=== PATIENT | female | born 1960 | race Caucasian/White ===

== ENCOUNTER 2017-01-04 12:03 | Emergency (ER) | payer BC ==
[2017-01-04 12:11] VITALS: RESP 18; TEMP 97.5; O2SAT 98
--- NOTE | 2017-01-04 13:14 | DX ---
Right Wrist, Three Views January 04, 2017 at 12:27 p.m. Clinical History: 56-year-old female who fell today while hiking, and is unable to flatten her wrist. Comparison Study: None. Findings: There is a complex comminuted and impacted fracture of the distal radial metaphysis with vo lar apex angulation. One of the fracture lines posteriorly approaches the dorsal articular surface. T here is displacement of the pronator fat pad. The ulnar styloid is still intact, and there is no conv incing navicular fracture. The bones appear mildly demineralized and when clinically feasible, a DEXA scan is suggested. I discussed these findings with Sheldon Castillo, Nurse Practitioner at 12:40 p.m. on January 04, 2017. Impression: Comminuted impacted Colles' fracture of the distal radius with some questionable underlyi ng generalized bone demineralization.
--- NOTE | 2017-01-04 13:25 | EDPHY ---
H & P Stated Complaint: ?r wrist dislocation postfall Source: Patient Exam Limitations: No limitations - Personal History Current Tetanus/Diphtheria Vaccine: Yes - Medical/Surgical History Hx Asthma: No Hx Chronic Respiratory Disease: No Hx Diabetes: No Hx Cardiac Disease: No Hx Renal Disease: No Hx Cirrhosis: No Hx Alcoholism: No Hx HIV/AIDS: No Other PMH: denies - Social History Smoking Status: Never smoked Time Seen by Provider: 01/04/17 12:11 HPI/ROS: CHIEF COMPLAINT: right wrist pain HISTORY OF PRESENT ILLNESS: 56-year-old female presents emergency department with right wrist deformity after a fall on outstretched right hand while hiking and slipped on ice today. Patient denies head strike, no neck pain, remembers the entire accident. She is [id number], reports numbness and tingling in her fingers. Patient denies elbow or shoulder pain. No previous injury to this wrist. REVIEW OF SYSTEMS: A comprehensive 10 point review of systems is otherwise negative aside from elements mentioned in the history of present illness. (Deneen Castillo) - Physical Exam Exam: Physical Exam Gen: Alert and Oriented, tearful HEENT: PERRL, moist mucous membranes NECK: no C-spine tenderness CV: regular rate and regular rhythm PULM: CTAB, no wheezes NEURO: Neurologically grossly intact EXTREMITIES: Right wrist with obvious deformity, 2+ radial pulses, sensation intact to light touch, cap refill less than 2 seconds, right elbow with no tenderness to palpation, full flexion and extension. SKIN: no rash or break in skin on exposed skin PSYCH: answers questions appropriately. (Deneen Castillo) Constitutional: Initial Vital Signs Temperature (C) 36.4 C 01/04/17 12:07 Heart Rate 66 01/04/17 12:07 Respiratory Rate 18 01/04/17 12:07 Blood Pressure 104/70 01/04/17 12:07 O2 Sat (%) 98 01/04/17 12:07 O2 Delivery Mode Room Air Allergies/Adverse Reactions: No Known Allergies Allergy (Unverified 01/04/17 12:06) Home Medications: Medication Instructions Recorded CeleBREX 01/04/17 Hydrocodone/APAP 5/325 [Alexis 1 tab PO Q4H PRN #20 tab 01/04/17 5/325] Medical Decision Making - Diagnostics Imaging: Right wrist x-ray independently reviewed by me- Impression: Comminuted impacted Colles' fracture of the distal radius with some questionable underlying generalized bone demineralization. Dictated By: Arnulfo Lockwodo MD Post reduction right wrist x-ray independently reviewed by me- Impression: Status post closed reduction and interim casting for a complex comminuted distal radial fracture with improvement in alignment, compared to 12:27 p.m. Dictated By: Arnulfo Lockwood MD (Denene Castillo) Procedures: Procedure: Fracture reduction. Indication: Displaced fracture right distal radius. Risks, benefits, alternatives discussed with the patient. Consent was obtained. The right distal radius was reduced using after he giving a hematoma block with 10 mL half 1% lidocaine without epinephrine and half 0.5% bupivacaine without epinephrine, good blood return prior to injection, good anesthesia obtained, patient tolerated well. Right hand was then placed in finger traps and was hanging with the traction of patient's own weight for approximately 5 minutes. Manual manipulation and traction performed for reduction. The patient has a normal neurovascular exam distal to the injury post reduction. Patient tolerated the procedure well and is significantly more comfortable. Post reduction x-ray demonstrates reduction of the fracture to the anatomic position. The procedure was performed by myself. A sugar-tong Ortho Glass splint was applied. After application of the splint, I returned and re-examined the patient. The splint was adequately immobilizing the joint. The patients circulation and sensation were intact distal to the splint. (Deneen Castillo) ED Course/Re-evaluation: 56 year old female presents with a comminuted displaced distal radius fracture. Hematoma block performed, right wrist was reduced and splinted, post reduction x-ray shows better alignment fracture, patient is sent home in a splint, she is sent with a prescription for Alexis. Patient is instructed to ice and elevate, she is given strict return precautions for any neurovascular compromise. Patient will follow up with an orthopedist within the next few days. She is given orthopedist on-call's contact information. (Deneen Castillo) Other Provider: Independent physician evaluation I evaluated and participated in the management of the patient. I also evaluated the patient independently. My co-signature indicates that I have reviewed this chart and I agree with the findings and plan of care as documented. My personal H&P findings include: The patient presents to the emergency department with pain and deformity to her right wrist after she fell earlier today. Patient denies additional co injury. The patient denies numbness or weakness. The patient has moderate pain and swelling involving her right wrist. PHYSICAL EXAM: General Appearance: Alert, no distress Head: Atraumatic Eyes: Pupils equal, round, reactive ENT, Mouth: No hemotympanum, no oral trauma Neck: Nontender, trachea midline Respiratory: No chest wall tender, subcutaneous air, lungs clear bilaterally Cardiovascular: Regular rate and rhythm Abdomen: Abdomen is soft and nontender, pelvis stable Skin: No lacerations, No abrasion Back: No midline T/L/S pain Extremities: Tenderness and deformity noted to the right distal radius Neurological: A&Ox3, normal motor function, normal sensory exam ER course: Under my supervision the patient underwent a close reduction of her distal radius fracture. Post reduction x-ray does demonstrate improvement in the angular deformity and shortening of the fracture. The patient continues to have some radial translation of the distal radius fracture relative to the shaft of the radius. The patient is noted to have a comminuted fracture pattern which will likely require further intervention. The patient will be placed in a sugar-tong splint. Procedure: Splint placement. A sugar-tong ortho glass splint was applied to the right upper extremity by [ the tech]. After application of the splint I returned and re-examined the patient. The splint was adequately immobilizing the joint and distal to the splint the patient's circulation and sensation was intact. The patient will be discharged home with a prescription for pain medications. She is advised to follow up with Orthopedic surgery for further evaluation as she may require ORIF for optimal reduction. (Ronak Byrd) - Data Points Medications Given: Discontinued Medications Acetaminophen/Hydrocodone Bitart (Alexis 5/325) 1 tab PO EDNOW ONE Stop: 01/04/17 13:51 Last Admin: 01/04/17 14:06 Dose: 1 tab Departure - Departure Disposition: Home, Routine, Self-Care Clinical Impression: Fracture of right distal radius Qualifiers: Encounter type: initial encounter Fracture type: closed Fracture morphology: other intra-articular Qualifier Code: (S52.571A) Other intraarticular fracture of lower end of right radius, initial encounter for closed fracture Condition: Good Instructions: Wrist Fracture in Adults (ED), Splint Care (ED) Additional Instructions: Rest, ice, elevate, take 600 mg of ibuprofen every 8 hours with food, take Alexis for severe pain. Keep splint in place, clean and dry until your follow- up appointment. Follow up with an orthopedist in the next 5 days. You have been given the name of the orthopedist on-call. Return to the emergency department for pain that is not controlled, discoloration of your hand numbness to your hand any other questions or concerns. Referrals: Bhargav Jamil MD [Medical Doctor] - As per Instructions (Orthopedist inspector precision) Prescriptions: Hydrocodone/APAP 5/325 [Alexis 5/325] 1 tab PO Q4H PRN #20 tab PRN Reason: Pain, Moderate
[2017-01-04] MEDS ORDERED: HYDROCODONE/APAP 5/325 TAB PO ONE (13:50)
[2017-01-04 14:14] VITALS: BP 128/71; PULSE 70
--- NOTE | 2017-01-04 16:04 | DX ---
Right Wrist, Two Views January 04, 2017 at 1:55 p.m. Clinical History: 56-year-old female who sustained a distal radial fracture, now presenting after sheila sed reduction. Comparison Study: Right wrist from earlier this afternoon at 12:27 p.m. Findings: There has been improvement in the degree of alignment involving the impacted distal radial Colles' fracture. There are persistent palmar and dorsal overlapping fragments. There is negative uln ar variance. The intercarpal alignments are maintained. Plaster casting does obscure fine bone detail . Impression: Status post closed reduction and interim casting for a complex comminuted distal radial f racture with improvement in alignment, compared to 12:27 p.m.
== END 2017-01-04 14:13 | disposition home or self-care (01) ==
PROC: 0PSHXZZ Reposition Right Radius, External Approach (ICD-10-PCS; principal; 2017-01-04)
DX: S52.571A Other intraarticular fracture of lower end of right radius, initial encounter for closed fracture (principal); W00.0XXA Fall on same level due to ice and snow, initial encounter; Y92.89 Other specified places as the place of occurrence of the external cause; Y93.01 Activity, walking, marching and hiking

== ENCOUNTER 2017-08-06 09:08 | Emergency (ER) | payer BC ==
[2017-08-06 09:15] VITALS: RESP 18
--- NOTE | 2017-08-06 09:35 | EDPHY ---
H & P Stated Complaint: R facial swelling since dental procedure yesterday - Personal History Current Tetanus Diphtheria and Acellular Pertussis (TDAP): Yes - Medical/Surgical History Hx Asthma: No Hx Chronic Respiratory Disease: No Hx Diabetes: No Hx Cardiac Disease: No Hx Renal Disease: No Hx Cirrhosis: No Hx Alcoholism: No Hx HIV/AIDS: No Other PMH: arthritis. HTN - Social History Smoking Status: Never smoked Time Seen by Provider: 08/06/17 09:20 HPI/ROS: CHIEF COMPLAINT: Facial swelling and crepitus HISTORY OF PRESENT ILLNESS: 57-year-old immunocompetent female arrives via private vehicle. Patient had a right maxillary crown replacement by her dentist yesterday. States that a few minutes after leave her dentist office she noticed right facial swelling which progressed to continued right facial swelling this morning and crepitus to her right face and right submandibular region.. Called her dentist and recommend she come to the ER. She denies chest pain or dyspnea. Denies neck pain. No Valsalva. Dentist is Dr. Sonny Pelaez at [facility]. REVIEW OF SYSTEMS: A ten point review of systems was performed and is negative with the exception of the items mentioned in the HPI PAST MEDICAL & SURGICAL HISTORY: No pertinent medical or surgical history SOCIAL HISTORY: nonsmoker PHYSICAL EXAM (Prior to examination, patient consented to physical exam, hands were washed and my usual and customary physical exam procedures followed) 1) GENERAL: Well-developed, well-nourished, alert and oriented. Appears to be in no acute distress. 2) HEAD: Normocephalic, atraumatic 3) HEENT: Pupils equal, round, reactive to light bilaterally. Sclera anicteric. Nasopharynx, oropharynx, clear, no lesions. Notable asymmetrical right facial swelling and crepitus consistent with subcutaneous emphysema extending from the right cheek to the right sub mandibular region. No areas of tenderness. No drainage. No fetid odor. Floor of mouth soft no evidence of Wyatt's angina. Ears bilaterally with normal tympanic membranes. 4) NECK: Full range of motion, no meningeal signs. No crepitus 5) LUNGS: Clear auscultation bilaterally, no wheezes, no rhonchi, no retractions. No crepitus 6) HEART: Regular rate and rhythm, no murmur, no heave, no gallop. 7) ABDOMEN: No guarding, no rebound, no focal tenderness, 8) MUSCULOSKELETAL: No peripheral edema or discoloration. 9) BACK: no visual or palpable abnormality. 10) SKIN: No rash, no petechiae. DIFFERENTIAL DIAGNOSIS: in no particular include but limited to facial abscess , subcutaneous emphysema, Ludwigs Angina (Vesna Johnson) Constitutional: Initial Vital Signs Temperature (C) 36.7 C 08/06/17 09:12 Heart Rate 70 08/06/17 09:12 Respiratory Rate 18 08/06/17 09:12 Blood Pressure 161/93 H 08/06/17 09:12 O2 Sat (%) 97 08/06/17 09:12 O2 Delivery Mode Room Air Allergies/Adverse Reactions: No Known Allergies Allergy (Verified 08/06/17 09:11) Home Medications: Medication Instructions Recorded Amoxicillin Trihydrate 500 mg PO Q8 7 Days cap 08/06/17 [Amoxicillin 500mg cap] Losartan Potassium [Cozaar 25 mg 25 mg PO 08/06/17 (*)] celeCOXIB [Celebrex (*)] 200 mg PO 08/06/17 Medical Decision Making - Diagnostics Imaging: Discussed imaging studies w/ call worker Radiologist - Diagnostics Imaging Results: Images reviewed by myself (Vesna Johnson) ED Course/Re-evaluation: 9:35 a.m.: Discussed case with secondary supervising physician Dr. Yaneli Corbin in the ER. Plan will be CT imaging 10:59 a.m.: Phone consultation with the patient's dentist Dr. Sonny Pelaez to update him with this patient's status. Plan will be discharge, started the patient on prophylactic antibiotics. Strict return precautions. At this time at no point has she experience dysphagia, odynophagia, headache, visual disturbance. However if she develops any symptoms or any other symptoms she needs to return to the ER immediately for re-evaluation. Discussed with Dr. Yaneli Corbin in ER. (Vesna Johnson) Other Provider: The patient was evaluated and managed by the Physician Methods Engineer/ Nurse Practitioner. I discussed the patient's presentation and course with the midlevel provider with them and agree with the evaluation. My co-signature indicates that I have reviewed this chart and I agree with the findings and plan of care as documented. I am the secondary supervising physician. (Yaneli Corbin) Departure - Departure Disposition: Home, Routine, Self-Care Clinical Impression: Subcutaneous emphysema after procedure, Subcutaneous emphysema face Condition: Good Instructions: Acute Dental Trauma (ED) Additional Instructions: If at any point you develop headaches, fevers, visual abnormality, difficulty swallowing or any other symptoms that concern you return to the ER immediately for re-evaluation. Referrals: Follow-up, with your dentist in 1-2 days [Other] - As per Instructions Prescriptions: Amoxicillin Trihydrate [Amoxicillin 500mg cap] 500 mg PO Q8 7 Days cap
[2017-08-06] MEDS ORDERED: IOPAMIDOL (ISOVUE-300) 100 ML BTL ONE (09:45)
[2017-08-06 11:34] VITALS: BP 150/100; PULSE 78; TEMP 97.9; O2SAT 98
== END 2017-08-06 11:15 | disposition home or self-care (01) ==
DX: T81.82XA Emphysema (subcutaneous) resulting from a procedure, initial encounter (principal); I10 Essential (primary) hypertension; Y82.8 Other medical devices associated with adverse incidents
CPT/HCPCS: 82947-QW; Q9967

== ENCOUNTER → 2017-11-04 | Outpatient (CLI) | payer BC | LOC: FIMAGING 07:42 | PROVIDERS: ATTEND Obstetrics & Gynecology | DX: Z12.31 Encounter for screening mammogram for malignant neoplasm of breast (principal) | CPT/HCPCS: G0202 ==

== ENCOUNTER → 2017-11-19 | Outpatient (CLI) | payer BC | LOC: FIMAGING 15:41 | PROVIDERS: ATTEND Internal Medicine | DX: M79.672 Pain in left foot (principal) ==

== ENCOUNTER → 2018-11-05 | Outpatient (CLI) | payer BC | LOC: FIMAGING 07:50 | PROVIDERS: ATTEND Internal Medicine | DX: Z12.31 Encounter for screening mammogram for malignant neoplasm of breast (principal) ==

== ENCOUNTER → 2018-11-16 | Outpatient (CLI) | payer BC | LOC: BMCIMAGING 09:47 | PROVIDERS: ATTEND Internal Medicine | DX: N63.20 Unspecified lump in the left breast, unspecified quadrant (principal) ==